=== PATIENT | female | born 1950 | race Caucasian/White ===

== ENCOUNTER 2019-05-17 13:20 | Outpatient (CLI) | payer MEDICARE, OTHER ==
--- NOTE | 2019-05-17 16:08 | MRI ---
MRI LUMBAR SPINE WITH AND WITHOUT CONTRAST: 05/17/19 HISTORY: Multiplanar and multisequential imaging lumbar spine obtained. Postcontrast images obtained after adm inistering IV Multihance. INDICATIONS: Lumbar radicular pain. Prior lumbar surgery. ----- No comparison studies. FINDINGS: Pedicle screws are seen transfixing L4, L5 and S1 levels. Vertebral body height is preserved. There i s mild anterolisthesis at L4-5. Moderate degenerative changes are seen throughout. Loss of disc space is seen at all levels below L1. T12-L1: No significant disc bulge or protrusion. L1-2: Mild disc bulge abuts the anterior thecal sac. No central canal or foraminal stenosis. L2-3: Degenerative disc changes with loss of disc space and degenerative disc and end plate signal ch anges. Broad based disc bulge flattens the thecal sac. Moderate facet and ligamentous hypertrophy. Mi ld central canal stenosis. Mild right foraminal encroachment due to disc bulge and facet hypertrophy. L3-4: Diffuse disc bulge flattens the thecal sac. Facet and ligamentous hypertrophy is prominent. P osterior laminectomy change. Moderate to severe central canal stenosis due to disc bulge and facet hy pertrophy. Pedicle screws at L4. Exact position is difficult to ascertain on MRI due to artifact. L4-5: There is an anterolisthesis. Broad based disc bulge. Posterior laminectomy change. Facet hypert rophy. Mild central canal stenosis. No significant foraminal stenosis. L5-S1: Mild diffuse disc bulge. The bulge is asymmetric to the left and there is disc osteophyte comp delmi projecting into the left foramina which appears to contact the exiting left L5 nerve root. Facet hypertrophy. Mild central canal stenosis. Left foraminal stenosis due to this disc osteophyte complex and facet hypertrophy. IMPRESSION: Degenerative and postoperative changes of the lumbar spine as noted above. Mild anterolisthesis of L4 -5 with central canal and foraminal stenosis as described above. POS: [facility]
== END 2019-05-17 13:21 | disposition home or self-care (01) ==
LOC: BICMRI 13:20
PROVIDERS: ATTEND Family Medicine
DX: M47.26 Other spondylosis with radiculopathy, lumbar region (principal); M43.16 Spondylolisthesis, lumbar region; M48.061 Spinal stenosis, lumbar region without neurogenic claudication; M48.07 Spinal stenosis, lumbosacral region
CPT/HCPCS: 72158